=== PATIENT | male | born 1950 | race Hispanic/Latino ===

== ENCOUNTER 2016-04-18 11:56 | Outpatient (CLI) | payer MEDICARE ==
--- NOTE | 2016-04-18 22:07 | CT ---
CT ABDOMEN AND PELVIS WITHOUT CONTRAST 04/18/16 Comparison is made with the prior study of 09/11/15 done at [facility]. Axial slices were acquire d, then coronal reconstructions were done. The lung bases are clear. The liver, spleen, pancreas, adrenal glands, and kidneys showed no acute c hanges within the limitations of a noncontrast study. A small 1.5 cm peripheral density in the left kidney is most likely a small cyst. It has not changed since the prior study. There is no sign of re nal calculi or obstruction. There are calcifications in the renal arteries, as well as the aorta. Th ere was no evidence of aortic aneurysm. The bowel is nondistended with no sign of obstruction. The appendix appears normal. There are no inf lammatory changes around bowel or bowel wall thickening. A few small diverticula are seen in the lef t kidney without any findings of diverticulitis. CT of the pelvis shows no masses, inflammatory changes or free fluid. Some degenerative changes are noted in the lower lumbar spine and there has been a fusion of some of the lower lumbar vertebrae. IMPRESSION: No acute abdominal or pelvic findings to explain the patient's abdominal pain. POS: HOME
== END 2016-04-18 11:57 | disposition home or self-care (01) ==
LOC: BURCT 11:56
PROVIDERS: ATTEND Family Medicine
DX: R10.9 Unspecified abdominal pain (principal)
CPT/HCPCS: 74176

== ENCOUNTER 2016-10-09 16:59 | Outpatient (CLI) | payer MEDICARE ==
--- NOTE | 2016-10-09 20:53 | RAD ---
LEFT SHOULDER THREE VIEWS 10/09/16 There is marked irregularity of the greater tubercle of the humerus. The appearance suggests there p robably was old trauma here. MRI would be much better at showing acute versus chronic and if there i s any associated rotator cuff damage. There is no dislocation. The AC joint is normal in width. A sm all calcified lymph node is suggested in the axillary region. IMPRESSION: Probable prior trauma to the greater tubercle. POS: HOME
== END 2016-10-09 17:00 | disposition home or self-care (01) ==
LOC: BURRAD 16:59
PROVIDERS: ATTEND Family Medicine
DX: S40.012A Contusion of left shoulder, initial encounter (principal)

== ENCOUNTER 2016-11-15 16:22 | Outpatient (CLI) | payer MEDICARE ==
[2016-11-15 16:45] LABS: #Basophils 0.1 thou/uL (0.0-0.2); #Eosinphils 0.1 thou/uL (0.0-0.7); #Monocytes 0.7 thou/uL (0.11-0.59); #Neutrophils 6.3 thou/uL (1.40-6.50); %Basophils 0.6 % (0.0-1.0); %Eosinophils 1.5 % (0.0-10.0); %Lymphocytes 21.7 % (21.0-51.0); %Monocytes 7.9 % (0.0-10.0); %Neutrophils 68.3 % (42.0-75.0); Hemoglobin 18.4 g/dL (14.0-18.0); Mean Corpuscular HGB CONC 34.3 g/dL (32.0-36.0); Mean Corpuscular Hemoglobin 31.4 pg (27.0-31.0); Mean Corpuscular Volume 91.5 fl (80.0-94.0); Mean Platelet Volume 5.9 fL (7.4-10.4); Platelet Count 161 thou/uL (130-400); Red Blood Cell (RBC) Count 5.86 mill/uL (4.70-6.10); White Blood Cell (WBC) Count 9.2 thou/uL (4.8-10.8)
[2016-11-15 16:56] LABS: Hemoglobin A1c 6.1 % (4.0-6.0)
[2016-11-15 17:05] LABS: ALT (SGPT) 14 U/L (8-55); AST (SGOT) 12 U/L (5-34); Albumin 4.2 g/dL (3.4-4.8); Alkaline Phosphatase 187 U/L (40-150); Anion Gap 15 mmol/L (10-20); BUN (Urea Nitrogen) 13 mg/dL (8.4-25.7); Bilirubin, Total 0.5 mg/dL (0.2-1.2); Calc. Creatinine Clearance 0 mL/min (70-130); Calcium 10.4 mg/dL (7.8-10.44); Carbon Dioxide 28 mmol/L (23-31); Chloride 102 mmol/L (98-107); Estimated GFR-MDRD 67; Glucose 230 mg/dL (80-115); Potassium 4.2 mmol/L (3.5-5.1); Protein, Total 7.2 g/dL (5.8-8.1); Sodium 141 mmol/L (136-145)
[2016-11-16 17:38] LABS: Creatinine, Urine 91.1 mg/dL (63-166); Microalbumin Urine 2.5 mg/dL (0.5-50.0); Microalbumin/Creat Ratio 27.4 mg/g (Less than 30)
== END 2016-11-15 16:23 | disposition home or self-care (01) ==
LOC: HPCALD 16:22
PROVIDERS: ATTEND Family Medicine
DX: E11.9 Type 2 diabetes mellitus without complications (principal)
CPT/HCPCS: 36415; 80053; 82043; 83036; 85025

== ENCOUNTER 2016-11-22 11:54 | Outpatient (CLI) | payer MEDICARE ==
[2016-11-22 14:10] LABS: #Basophils 0.1 thou/uL (0.0-0.2); #Eosinphils 0.1 thou/uL (0.0-0.7); #Lymphocytes 1.6 thou/uL (1.20-3.40); #Monocytes 0.7 thou/uL (0.11-0.59); #Neutrophils 5.6 thou/uL (1.40-6.50); %Basophils 0.8 % (0.0-1.0); %Eosinophils 1.7 % (0.0-10.0); %Lymphocytes 19.2 % (21.0-51.0); %Monocytes 8.8 % (0.0-10.0); %Neutrophils 69.5 % (42.0-75.0); Hemoglobin 17.5 g/dL (14.0-18.0); Mean Corpuscular HGB CONC 34.6 g/dL (32.0-36.0); Mean Corpuscular Volume 89.5 fl (80.0-94.0); Mean Platelet Volume 6.4 fL (7.4-10.4); PLT Morphology Comment Appears Decreased; Platelet Count 115 thou/uL (130-400); RBC Distribution Width 13.3 % (11.5-14.5); Red Blood Cell (RBC) Count 5.65 mill/uL (4.70-6.10); White Blood Cell (WBC) Count 8.1 thou/uL (4.8-10.8)
== END 2016-11-22 11:55 | disposition home or self-care (01) ==
LOC: HPCALD 11:54
PROVIDERS: ATTEND Family Medicine
DX: D75.1 Secondary polycythemia (principal)
CPT/HCPCS: 36415; 82668; 85025

== ENCOUNTER 2016-11-22 12:34 | Outpatient (CLI) | payer MEDICARE ==
--- NOTE | 2016-11-22 16:00 | CT ---
CT OF THE BRAIN WITHOUT CONTRAST: Date: 11/22/16 Comparison is made with the 11/05/[address] [facility]. The prior study showed a small focal area of acute parenchymal hemorrhage in the right frontal lobe. On today's study, not unexpectedly the blood has become now isodense with just a hint of any remaini ng. There has certainly been no rebleeding or areas of bleeding. Diffuse chronic ischemic changes ar e present throughout the brain consisting of patchy hypodense areas in the deep white matter. These seem quite similar to before. Atrophy and mild compensatory dilatation of the ventricles is the same as well. No mass or obvious acute stroke was seen. There are dense calcifications in the vertebral arteries, especially the left. The calvarium and visible sinuses were unremarkable. IMPRESSION: 1. Interval resorption and/or turning isodense of the small focal right frontal hemorrhage. No evid ence of new bleeding. 2. Diffuse chronic ischemic changes. POS: HOME
== END 2016-11-22 12:35 | disposition home or self-care (01) ==
LOC: BURCT 12:34
PROVIDERS: ATTEND Family Medicine
DX: I62.9 Nontraumatic intracranial hemorrhage, unspecified (principal)
CPT/HCPCS: 70450

== ENCOUNTER 2017-12-04 13:15 | Inpatient (IN) | payer MEDICARE ==
[2017-12-04] MEDS ORDERED: Dextrose 5% in Water 1,000 ML IV PRN (17:22)
[2017-12-04] MEDS ORDERED: Dextrose 50% Abboject 50 ML SYRINGE SLOW IVP PRN (17:22)
[2017-12-04] MEDS ORDERED: HumaLOG 300 UNITS/3 ML VIAL SC PRN ×2 (17:22)
[2017-12-04] MEDS ORDERED: traMADol HCl 50 MG TAB PO PRN (17:25)
[2017-12-04] MEDS ORDERED: Loperamide HCl 2 MG CAP PO PRN (17:25)
[2017-12-04] MEDS: Nicotine 14 MG PATCH TD SCH (18:24)
[2017-12-04] MEDS ORDERED: Insulin Glargine 100 UNIT/ML 3 ML PEN SQ SCH (21:00)
[2017-12-04] MEDS: Atorvastatin Calcium 40 MG TAB PO SCH (21:03)
[2017-12-04] MEDS: Carvedilol 3.125 MG TAB PO SCH (21:04)
[2017-12-04] MEDS: Famotidine 20 MG TAB PO SCH (21:04)
[2017-12-04] MEDS: Zolpidem Tartrate 5 MG TAB PO PRN (21:05)
[2017-12-04] MEDS: Levemir Flexpen 100 UNITS/ML PEN SC SCH (21:19)
[2017-12-05 06:36] VITALS: BMI 22.0
[2017-12-05] MEDS: Lisinopril 5 MG TAB PO SCH (09:28)
[2017-12-05] MEDS: Aspirin 81 mg Enteric Coated Tablet PO SCH (09:28)
[2017-12-05] MEDS: Famotidine 20 MG TAB PO SCH ×2 (09:28→20:40)
[2017-12-05] MEDS: Carvedilol 3.125 MG TAB PO SCH ×2 (09:28→20:40)
[2017-12-05] MEDS: Clopidogrel Bisulfate 75 MG TAB PO SCH (09:29)
[2017-12-05] MEDS: Levemir Flexpen 100 UNITS/ML PEN SC SCH ×2 (09:31→20:40)
[2017-12-05] MEDS: Milk Of Magnesia 30 ML UDCUP PO PRN (14:28)
[2017-12-05] MEDS: Ondansetron ODT 4 MG TAB PO PRN (16:07)
[2017-12-05] MEDS: Nicotine 14 MG PATCH TD SCH (17:31)
[2017-12-05] MEDS: Atorvastatin Calcium 40 MG TAB PO SCH (20:39)
[2017-12-06] MEDS: Clopidogrel Bisulfate 75 MG TAB PO SCH (09:32)
[2017-12-06] MEDS: Lisinopril 5 MG TAB PO SCH (09:32)
[2017-12-06] MEDS: Famotidine 20 MG TAB PO SCH ×2 (09:32→21:09)
[2017-12-06] MEDS: Carvedilol 3.125 MG TAB PO SCH ×2 (09:32→21:09)
[2017-12-06] MEDS: Aspirin 81 mg Enteric Coated Tablet PO SCH (09:33)
[2017-12-06] MEDS: Levemir Flexpen 100 UNITS/ML PEN SC SCH ×2 (09:33→21:09)
[2017-12-06] MEDS: Ondansetron ODT 4 MG TAB PO PRN (12:32)
[2017-12-06] MEDS: Acetaminophen 325 MG TAB PO PRN (13:56)
[2017-12-06] MEDS: Milk Of Magnesia 30 ML UDCUP PO PRN (14:26)
[2017-12-06] MEDS: Nicotine 14 MG PATCH TD SCH (18:04)
[2017-12-06] MEDS: Atorvastatin Calcium 40 MG TAB PO SCH (21:09)
[2017-12-06] MEDS: Zolpidem Tartrate 5 MG TAB PO PRN (21:14)
[2017-12-07] MEDS: Levemir Flexpen 100 UNITS/ML PEN SC SCH ×2 (09:28→21:05)
[2017-12-07] MEDS: Aspirin 81 mg Enteric Coated Tablet PO SCH (09:34)
[2017-12-07] MEDS: Carvedilol 3.125 MG TAB PO SCH ×2 (09:34→21:04)
[2017-12-07] MEDS: Famotidine 20 MG TAB PO SCH ×2 (09:34→21:04)
[2017-12-07] MEDS: Clopidogrel Bisulfate 75 MG TAB PO SCH (09:34)
[2017-12-07] MEDS: Lisinopril 5 MG TAB PO SCH (09:34)
[2017-12-07] MEDS: Bisacodyl 10 MG SUPP PR PRN (09:45)
[2017-12-07] MEDS: Nicotine 14 MG PATCH TD SCH (18:18)
[2017-12-07] MEDS: Atorvastatin Calcium 40 MG TAB PO SCH (21:04)
[2017-12-07] MEDS: Zolpidem Tartrate 5 MG TAB PO PRN (21:35)
[2017-12-08] MEDS: Polyethylene Glycol 3350 17 GM Packet PO SCH (09:13)
[2017-12-08] MEDS: Famotidine 20 MG TAB PO SCH ×2 (09:13→21:33)
[2017-12-08] MEDS: Carvedilol 3.125 MG TAB PO SCH ×2 (09:13→21:33)
[2017-12-08] MEDS: Aspirin 81 mg Enteric Coated Tablet PO SCH (09:14)
[2017-12-08] MEDS: Lisinopril 5 MG TAB PO SCH (09:14)
[2017-12-08] MEDS: Clopidogrel Bisulfate 75 MG TAB PO SCH (09:14)
[2017-12-08] MEDS: Levemir Flexpen 100 UNITS/ML PEN SC SCH ×2 (09:35→21:33)
[2017-12-08] MEDS: Acetaminophen 325 MG TAB PO PRN (12:02)
[2017-12-08] MEDS: Nicotine 14 MG PATCH TD SCH (18:58)
[2017-12-08] MEDS: Atorvastatin Calcium 40 MG TAB PO SCH (21:33)
[2017-12-08] MEDS: Zolpidem Tartrate 5 MG TAB PO PRN (21:34)
[2017-12-09] MEDS: Acetaminophen 325 MG TAB PO PRN ×2 (05:33→19:31)
[2017-12-09] MEDS: Polyethylene Glycol 3350 17 GM Packet PO SCH (09:07)
[2017-12-09] MEDS: Lisinopril 5 MG TAB PO SCH (09:09)
[2017-12-09] MEDS: Clopidogrel Bisulfate 75 MG TAB PO SCH (09:10)
[2017-12-09] MEDS: Carvedilol 3.125 MG TAB PO SCH ×2 (09:10→22:04)
[2017-12-09] MEDS: Aspirin 81 mg Enteric Coated Tablet PO SCH (09:10)
[2017-12-09] MEDS: Famotidine 20 MG TAB PO SCH ×2 (09:10→22:04)
[2017-12-09] MEDS: Levemir Flexpen 100 UNITS/ML PEN SC SCH ×2 (09:10→22:04)
[2017-12-09] MEDS: Nicotine 14 MG PATCH TD SCH (19:18)
[2017-12-09] MEDS: Atorvastatin Calcium 40 MG TAB PO SCH (22:03)
[2017-12-09] MEDS: Zolpidem Tartrate 5 MG TAB PO PRN (22:04)
[2017-12-10] MEDS: Clopidogrel Bisulfate 75 MG TAB PO SCH (08:49)
[2017-12-10] MEDS: Aspirin 81 mg Enteric Coated Tablet PO SCH (08:49)
[2017-12-10] MEDS: Famotidine 20 MG TAB PO SCH ×2 (08:49→21:37)
[2017-12-10] MEDS: Lisinopril 5 MG TAB PO SCH (08:49)
[2017-12-10] MEDS: Carvedilol 3.125 MG TAB PO SCH ×2 (08:50→21:37)
[2017-12-10] MEDS: Polyethylene Glycol 3350 17 GM Packet PO SCH (08:51)
[2017-12-10] MEDS: Levemir Flexpen 100 UNITS/ML PEN SC SCH ×2 (08:52→21:38)
[2017-12-10] MEDS: Milk Of Magnesia 30 ML UDCUP PO PRN (10:58)
[2017-12-10] MEDS: Acetaminophen 325 MG TAB PO PRN ×2 (14:10→21:37)
[2017-12-10] MEDS: Nicotine 14 MG PATCH TD SCH (17:49)
[2017-12-10] MEDS: Zolpidem Tartrate 5 MG TAB PO PRN (21:37)
[2017-12-10] MEDS: Atorvastatin Calcium 40 MG TAB PO SCH (21:37)
[2017-12-11] MEDS: Bisacodyl 10 MG SUPP PR PRN (05:40)
[2017-12-11] MEDS: Levemir Flexpen 100 UNITS/ML PEN SC SCH (08:17)
[2017-12-11] MEDS: Famotidine 20 MG TAB PO SCH (08:22)
[2017-12-11] MEDS: Aspirin 81 mg Enteric Coated Tablet PO SCH (08:22)
[2017-12-11] MEDS: Clopidogrel Bisulfate 75 MG TAB PO SCH (08:23)
[2017-12-11] MEDS: Lisinopril 5 MG TAB PO SCH (08:23)
[2017-12-11] MEDS: Carvedilol 3.125 MG TAB PO SCH (08:23)
[2017-12-11] MEDS: Polyethylene Glycol 3350 17 GM Packet PO SCH (08:24)
[2017-12-11] MEDS ORDERED: Nicotine 14 MG PATCH TD SCH (16:40)
[2017-12-11 17:21] VITALS: BP 127/59; TEMP 98.6
== END 2017-12-11 18:32 | DRG 57 ==
LOC: BURMED 13:15
PROVIDERS: ADMIT Family Medicine; ATTEND Family Medicine
DX: I69.398 Other sequelae of cerebral infarction (principal); E87.1 Hypo-osmolality and hyponatremia; I69.331 Monoplegia of upper limb following cerebral infarction affecting right dominant side; H54.3 Unqualified visual loss, both eyes; Z89.511 Acquired absence of right leg below knee; I10 Essential (primary) hypertension; E11.51 Type 2 diabetes mellitus with diabetic peripheral angiopathy without gangrene; F17.210 Nicotine dependence, cigarettes, uncomplicated; E78.5 Hyperlipidemia, unspecified
CPT/HCPCS: 36416; G8978-GP-CK; G8979-GP-CI; G8987-GO-CJ; G8988-GO-CI; J1815; Q0162

== ENCOUNTER 2018-11-06 15:43 | Emergency (ER) | payer MEDICARE, MEDICAID ==
--- NOTE | 2018-11-06 16:36 | RAD ---
Right shoulder 3 views HISTORY: Right shoulder injury. FINDINGS: Acromioclavicular and glenohumeral alignment are maintained. Moderate osteophytosis. No acu te fracture or dislocation. IMPRESSION: No acute osseous abnormalities are demonstrated.
--- NOTE | 2018-11-06 16:54 | CT ---
CT head noncontrast HISTORY: Fall. Head injury. COMPARISON: 05/21/2018. FINDINGS: There is no evidence of acute intracranial hemorrhage or infarct. Encephalomalacia within t he right frontal and occipital lobes has progressed slightly since the prior study. Diffuse cortical atrophy and chronic ischemic small vessel disease. There is no mass effect or shift of midli ne structures. Prominent calcification in the arterial structures. Visualized paranasal sinuses remain well aerated. IMPRESSION: Prominent chronic vascular disease. No acute intracranial abnormalities are demonstrated. Atherosclerosis.
== END 2018-11-06 18:50 ==
LOC: BURERS 15:43
DX: S09.90XA Unspecified injury of head, initial encounter (principal); S51.011A Laceration without foreign body of right elbow, initial encounter; S40.011A Contusion of right shoulder, initial encounter; E78.5 Hyperlipidemia, unspecified; Z86.73 Personal history of transient ischemic attack (TIA), and cerebral infarction without residual deficits; E11.51 Type 2 diabetes mellitus with diabetic peripheral angiopathy without gangrene; F32.9 Major depressive disorder, single episode, unspecified; F17.210 Nicotine dependence, cigarettes, uncomplicated; Z79.4 Long term (current) use of insulin; Z79.899 Other long term (current) drug therapy; V00.811A Fall from moving wheelchair (powered), initial encounter
CPT/HCPCS: 70450

== ENCOUNTER 2019-02-12 16:15 | Outpatient (CLI) | payer MEDICARE, MEDICAID ==
--- NOTE | 2019-02-12 17:42 | RAD ---
LUMBAR SPINE THREE VIEWS: 02/12/19 Comparison is made with a 04/14/13 study. There has been minimal interval change. Posterior fusion of L4 through S1 is present with pedicle scr ews. The right pedicle screw at the L4 level has a small break in it, but this was present in 2013 an d it has really not changed in any way in the interval. Mild spondylolisthesis of L4 on L5 is exactly the same as before. No acute fracture was seen. The L5-S1 disc space is mainly fused. The other disc spaces appear normal. No acute changes are seen in the SI joints. There is considerable fecal materi al in the colon. Some faint calcifications are seen in the left upper quadrant of uncertain etiology. There is dense calcification of the lower abdominal aorta. IMPRESSION: Some degenerative changes and postoperative changes. The exam is little different than the 2013 study . POS: HOME
== END 2019-02-12 16:16 | disposition home or self-care (01) ==
LOC: BURRAD 16:15
PROVIDERS: ATTEND Family Medicine
DX: Z91.81 History of falling (principal); M47.816 Spondylosis without myelopathy or radiculopathy, lumbar region; Z98.1 Arthrodesis status
CPT/HCPCS: 72100

== ENCOUNTER 2019-06-06 11:05 | Outpatient (CLI) | payer MEDICARE, OTHER ==
--- NOTE | 2019-06-06 15:50 | RAD ---
LUMBAR SPINE 3 VIEWS: Date: 06/06/2019 Comparison made with the prior study of 02/12/2019. No acute fracture seen. There is posterior fusion of L4 through S1 with three pedicle screws on the r ight and two on the left. There does appear to be a breakage of one of the L4 screws, but this is not a new finding. Slight disc space narrowing at L4-L5 is no different than before, and there is mild a nterolisthesis of L4 on L5. The L5-S1 disc space is fusing. Dense arteriosclerotic change is seen in the lower aorta. The SI joints are symmetrical. IMPRESSION: Chronic and postop changes, but no acute findings compared to the 2019 study. POS: HOME
== END 2019-06-06 11:06 | disposition home or self-care (01) ==
LOC: BURRAD 11:05
PROVIDERS: ATTEND Registered Nurse Community Health
DX: M54.40 Lumbago with sciatica, unspecified side (principal); Z98.1 Arthrodesis status
CPT/HCPCS: 72100

== ENCOUNTER 2019-06-19 16:31 | Emergency (ER) | payer MEDICARE, OTHER ==
--- NOTE | 2019-06-19 20:13 | CT ---
CT OF THE BRAIN WIHTOUT CONTRAST: 06/19/[address] was done and compared with the prior study dated 11/06/18. Diffuse chronic ischemic changes are present throughout the white matter bilaterally. Areas of enceph alomalacia are prominent in the right frontal and occipital regions in particular. The overall appear ance is not much different than the prior exam. No intracranial hemorrhage or extra-axial hematoma wa s seen. There was no sign of acute stroke, though small strokes would be missed against the backgroun d of chronic ischemic change. The mastoid air cells on the left are under aerated. IMPRESSION: 1. No acute traumatic intracranial findings. 2. Extensive chronic ischemic changes, but little different than in 2019. Findings called to [place] in ER at 1704 on 06/19/19. POS: HOME
--- NOTE | 2019-06-19 20:14 | RAD ---
LEFT LEG TWO VIEWS: 06/19/19 Vascular clips are seen in the leg. No acute fracture was evident. The tibia and fibula appear intact . A stent is noted in the popliteal region. IMPRESSION: No acute bony findings. POS: HOME
== END 2019-06-19 17:42 | disposition home or self-care (01) ==
LOC: BURERS 16:31
DX: S00.03XA Contusion of scalp, initial encounter (principal); S80.12XA Contusion of left lower leg, initial encounter; E78.5 Hyperlipidemia, unspecified; E11.9 Type 2 diabetes mellitus without complications; F32.9 Major depressive disorder, single episode, unspecified; I95.9 Hypotension, unspecified; F17.210 Nicotine dependence, cigarettes, uncomplicated; I73.9 Peripheral vascular disease, unspecified; Z86.73 Personal history of transient ischemic attack (TIA), and cerebral infarction without residual deficits; Z79.82 Long term (current) use of aspirin; Z79.899 Other long term (current) drug therapy; Z79.4 Long term (current) use of insulin; W18.12XA Fall from or off toilet with subsequent striking against object, initial encounter
CPT/HCPCS: 70450

== ENCOUNTER 2019-12-15 22:19 | Outpatient (CLI) | payer MEDICARE, OTHER ==
[2019-12-15 22:37] LABS: Bilirubin Negative (Negative); Blood, Urine Negative (Negative); Clarity Slightly Cloudy (Clear); Glucose, Urine (Dipstick) Negative (Negative); Ketone, Urine 15 mg/dL (Negative); Leukocyte Negative (Negative); Nitrite Negative (Negative); Protein, Urine (Dipstick) Negative (Neg-Trace); Urobilinogen 0.2 mg/dL (Less than 2)
[2019-12-15 22:49] LABS: Bacteria/HPF Rare-Few HPF (None Seen); Calcium Oxalate Crystals 1+ HPF (None Seen); RBC/HPF None Seen HPF (0-3); Squamous Epithelial None Seen HPF (0-3); Urine Culture Reflex No No; WBC/HPF 0-3 HPF (0-3)
== END 2019-12-15 22:20 | disposition home or self-care (01) ==
LOC: BURMANOR 22:19
PROVIDERS: ATTEND Registered Nurse Community Health
DX: N39.0 Urinary tract infection, site not specified (principal); R41.82 Altered mental status, unspecified
CPT/HCPCS: 81001; 87086

== ENCOUNTER 2020-02-11 20:23 | Outpatient (CLI) | payer MEDICARE, OTHER ==
[2020-02-11 20:40] LABS: Bilirubin Small (Negative); Blood, Urine Negative (Negative); Clarity Clear (Clear); Glucose, Urine (Dipstick) Negative (Negative); Ketone, Urine Trace mg/dL (Negative); Leukocyte Negative (Negative); Nitrite Negative (Negative); Protein, Urine (Dipstick) Negative (Neg-Trace); Specific Gravity, Urine 1.025 (1.005-1.030); Urobilinogen 0.2 mg/dL (Less than 2); pH, Urine 5.5 (5.0-9.0)
[2020-02-11 20:41] LABS: Urine Culture Reflex No No
[2020-02-11 20:43] LABS: Bacteria/HPF 1+ HPF (None Seen); RBC/HPF None Seen HPF (0-3); Squamous Epithelial 0-3 HPF (0-3); WBC/HPF 0-3 HPF (0-3)
[2020-02-11 20:55] LABS: ALT (SGPT) 22 U/L (8-55); AST (SGOT) 25 U/L (5-34); Alkaline Phosphatase 116 U/L (40-110); Anion Gap 21 mmol/L (10-20); BUN (Urea Nitrogen) 12 mg/dL (8.4-25.7); Bilirubin, Total 0.4 mg/dL (0.2-1.2); Calc. Creatinine Clearance 0 mL/min (70-130); Calcium 9.3 mg/dL (7.8-10.44); Carbon Dioxide 22 mmol/L (23-31); Chloride 97 mmol/L (98-107); Estimated GFR-MDRD 67; Globulin 3.2 g/dL (2.4-3.5); Glucose 113 mg/dL (83-110); Protein, Total 7.2 g/dL (5.8-8.1); Sodium 135 mmol/L (136-145)
[2020-02-12 10:01] LABS: #Eosinphils 0.1 thou/uL (0.0-0.7); #Lymphocytes 1.5 thou/uL (1.20-3.40); #Monocytes 0.4 thou/uL (0.11-0.59); #Neutrophils 4.2 thou/uL (1.40-6.50); %Basophils 0.6 % (0.0-1.0); %Eosinophils 2.1 % (0.0-10.0); %Lymphocytes 23.6 % (21.0-51.0); %Monocytes 7.1 % (0.0-10.0); %Neutrophils 66.7 % (42.0-75.0); Hemoglobin 16.5 g/dL (14.0-18.0); Mean Corpuscular HGB CONC 32.6 g/dL (32.0-36.0); Mean Corpuscular Hemoglobin 29.7 pg (27.0-31.0); Mean Corpuscular Volume 91.1 fL (78.0-98.0); Mean Platelet Volume 7.8 fL (7.4-10.4); Platelet Count 108 thou/uL (130-400); Platelet Morphology Comment Appears Decreased; RBC Distribution Width 13.8 % (11.5-14.5); Red Blood Cell (RBC) Count 5.57 mill/uL (4.70-6.10); White Blood Cell (WBC) Count 6.2 thou/uL (4.8-10.8)
[2020-02-12 10:08] LABS: Follow-up Hematology Comp? YES; Follow-up Result - Hematology REPORT FAXED
== END 2020-02-11 20:24 | disposition home or self-care (01) ==
LOC: BURMANOR 20:23
PROVIDERS: ATTEND Registered Nurse Community Health
DX: M62.50 Muscle wasting and atrophy, not elsewhere classified, unspecified site (principal); M62.81 Muscle weakness (generalized); E11.8 Type 2 diabetes mellitus with unspecified complications; R44.1 Visual hallucinations; N39.0 Urinary tract infection, site not specified
CPT/HCPCS: 80053; 81001; 85025; 87086

== ENCOUNTER 2020-07-09 00:11 | Outpatient (CLI) | payer MEDICARE, MEDICAID | END 2020-07-09 00:12 | disposition home or self-care (01) | LOC: BURMANOR 00:11 | PROVIDERS: ATTEND Family Medicine | DX: E78.5 Hyperlipidemia, unspecified (principal); N40.0 Benign prostatic hyperplasia without lower urinary tract symptoms; E11.8 Type 2 diabetes mellitus with unspecified complications; E11.51 Type 2 diabetes mellitus with diabetic peripheral angiopathy without gangrene; G40.89 Other seizures | CPT/HCPCS: 83880 ==

== ENCOUNTER 2020-11-13 10:07 | Outpatient (CLI) | payer MEDICARE, OTHER | END 2020-11-13 10:08 | disposition home or self-care (01) | LOC: BURRAD 10:07 | PROVIDERS: ATTEND Family Medicine | DX: M54.5 Low back pain (principal); Z98.1 Arthrodesis status | CPT/HCPCS: 72100 ==

== ENCOUNTER 2020-12-21 16:57 | Outpatient (CLI) | payer MEDICARE, MEDICAID | END 2020-12-21 16:58 | disposition home or self-care (01) | LOC: BURMANOR 16:57 | PROVIDERS: ATTEND Family Medicine | DX: Z11.59 Encounter for screening for other viral diseases (principal) | CPT/HCPCS: 87804 ==

== ENCOUNTER 2021-01-14 18:03 | Outpatient (CLI) | payer MEDICARE, MEDICAID | END 2021-01-14 18:04 | disposition home or self-care (01) | LOC: BURMANOR 18:03 | PROVIDERS: ATTEND Family Medicine | DX: J10.1 Influenza due to other identified influenza virus with other respiratory manifestations (principal) | CPT/HCPCS: 87804 ==

== ENCOUNTER 2021-02-24 13:45 | Outpatient (CLI) | payer MEDICARE, OTHER | END 2021-02-24 13:46 | disposition home or self-care (01) | LOC: BURRAD 13:45 | PROVIDERS: ATTEND Podiatrist | DX: M79.675 Pain in left toe(s) (principal); M20.12 Hallux valgus (acquired), left foot ==

== ENCOUNTER 2022-01-01 18:12 | Emergency (ER) | payer MEDICARE, OTHER ==
[2022-01-01 18:45] LABS: #Basophils 0.1 thou/uL (0.0-0.2); #Eosinphils 0.2 thou/uL (0.0-0.7); #Lymphocytes 2.2 thou/uL (1.20-3.40); #Monocytes 0.7 thou/uL (0.11-0.59); #Neutrophils 4.2 thou/uL (1.40-6.50); %Eosinophils 2.7 % (0.0-10.0); %Lymphocytes 29.6 % (21.0-51.0); %Monocytes 9.3 % (0.0-10.0); %Neutrophils 57.4 % (42.0-75.0); Hemoglobin 15.1 g/dL (14.0-18.0); Mean Corpuscular HGB CONC 35.1 g/dL (32.0-36.0); Mean Corpuscular Volume 91.1 fL (78.0-98.0); Mean Platelet Volume 6.4 fL (7.4-10.4); Platelet Count 146 thou/uL (130-400); Red Blood Cell (RBC) Count 4.71 mill/uL (4.70-6.10); White Blood Cell (WBC) Count 7.3 thou/uL (4.8-10.8)
[2022-01-01 18:56] LABS: ALT (SGPT) 21 U/L (8-55); AST (SGOT) 16 U/L (5-34); Albumin 4.4 g/dL (3.4-4.8); Alkaline Phosphatase 99 U/L (40-110); Anion Gap 20 mmol/L (10-20); BUN (Urea Nitrogen) 31 mg/dL (8.4-25.7); Bilirubin, Total 0.6 mg/dL (0.2-1.2); CK (CPK) 211 U/L (30-200); Calc. Creatinine Clearance 0 mL/min (70-130); Calcium 9.7 mg/dL (7.8-10.44); Carbon Dioxide 24 mmol/L (23-31); Chloride 98 mmol/L (98-107); Estimated GFR 56; Globulin 3.1 g/dL (2.4-3.5); Glucose 120 mg/dL (83-110); Lipase 50 U/L (8-78); Potassium 4.5 mmol/L (3.5-5.1); Protein, Total 7.5 g/dL (5.8-8.1); Sodium 137 mmol/L (136-145)
[2022-01-01] MEDS ORDERED: Aspirin Chewable 81 MG TAB ONE (19:29)
[2022-01-01 19:59] LABS: Bilirubin Negative (Negative); Blood, Urine Negative (Negative); Clarity Clear (Clear); Glucose, Urine (Dipstick) Negative (Negative); Ketone, Urine Negative (Negative); Leukocyte Negative (Negative); Nitrite Negative (Negative); Protein, Urine (Dipstick) Negative (Neg-Trace)
[2022-01-01 20:29] LABS: Acetaminophen Less than 10.0 mcg/mL (10.0-30.0); Alcohol Less than 10 mg/dL (Less than 10); Salicylate Less than 8.0 mg/dL (15.0-30.0)
== END 2022-01-01 22:23 | disposition short-term general hospital (02) ==
LOC: BURERS 18:12
DX: R47.81 Slurred speech (principal); E78.5 Hyperlipidemia, unspecified; I10 Essential (primary) hypertension; Z86.73 Personal history of transient ischemic attack (TIA), and cerebral infarction without residual deficits; F17.210 Nicotine dependence, cigarettes, uncomplicated; Z79.4 Long term (current) use of insulin; Z79.84 Long term (current) use of oral hypoglycemic drugs; Z79.899 Other long term (current) drug therapy
CPT/HCPCS: 36415; 51701; 70450; 71045; 80053; 80307; 81003; 82550; 83690; 84443; 84484; 85025; 93005; 96360

== ENCOUNTER 2023-10-25 14:10 | Emergency (ER) | payer OTHER ==
[2023-10-25 14:59] LABS: #Basophils 0.1 thou/uL (0.0-0.2); #Eosinphils 0.2 thou/uL (0.0-0.7); #Monocytes 0.6 thou/uL (0.11-0.59); #Neutrophils 4.4 thou/uL (1.40-6.50); %Basophils 0.7 % (0.0-1.0); %Eosinophils 3.2 % (0.0-10.0); %Lymphocytes 28.1 % (21.0-51.0); %Monocytes 8.1 % (0.0-10.0); %Neutrophils 59.9 % (42.0-75.0); Hematocrit 44.7 % (42.0-52.0); Hemoglobin 14.9 g/dL (14.0-18.0); Mean Corpuscular HGB CONC 33.4 g/dL (32.0-36.0); Mean Corpuscular Hemoglobin 30.6 pg (27.0-31.0); Mean Corpuscular Volume 91.6 fl (78.0-98.0); Mean Platelet Volume 6.2 fL (7.4-10.4); Platelet Count 142 10x3/uL (130-400); RBC Distribution Width 13.3 % (11.5-14.5); Red Blood Cell (RBC) Count 4.88 mill/uL (4.70-6.10); White Blood Cell (WBC) Count 7.3 10x3/uL (4.8-10.8)
[2023-10-25 15:09] LABS: INR-International Normal Ratio 1.4; Prothrombin Time 16.8 sec (12.0-14.7)
[2023-10-25 15:17] LABS: ALT (SGPT) 16 U/L (8-55); AST (SGOT) 17 U/L (5-34); Albumin 3.7 g/dL (3.4-4.8); Alkaline Phosphatase 77 U/L (40-110); Anion Gap 19 mmol/L (10-20); BUN (Urea Nitrogen) 12 mg/dL (8.4-25.7); Bilirubin, Total 0.8 mg/dL (0.2-1.2); Calc. Creatinine Clearance 0 mL/min (70-130); Calcium 9.4 mg/dL (7.8-10.44); Carbon Dioxide 27 mmol/L (23-31); Chloride 100 mmol/L (98-107); Estimated GFR 85; Globulin 3.1 g/dL (2.4-3.5); Glucose 91 mg/dL (83-110); Potassium 3.8 mmol/L (3.5-5.1); Protein, Total 6.8 g/dL (5.8-8.1); Sodium 142 mmol/L (136-145)
[2023-10-25 15:34] LABS: Bilirubin Negative (Negative); Blood, Urine Negative (Negative); Clarity Clear (Clear); Glucose, Urine (Dipstick) Negative (Negative); Ketone, Urine Negative (Negative); Leukocyte Trace (Negative); Nitrite Negative (Negative); Protein, Urine (Dipstick) Negative (Neg-Trace); Specific Gravity, Urine 1.015 (1.005-1.030); pH, Urine 5.5 (5.0-9.0)
[2023-10-25 15:37] LABS: Bacteria/HPF 1+ HPF (None Seen); CAUTI Indications for Culture Alt mental st,lethar; RBC/HPF None Seen HPF (0-3); Squamous Epithelial 0-3 HPF (0-3); Urine Culture Reflex No No; WBC/HPF 0-3 HPF (0-3)
[2023-10-25] MEDS ORDERED: Boostrix 0.5 ML (Tdap) VIAL (>/=7 yrs of age) ONE (16:16)
== END 2023-10-25 17:18 ==
LOC: BURERS 14:10
DX: S90.02XA Contusion of left ankle, initial encounter (principal); S80.212A Abrasion, left knee, initial encounter; E11.9 Type 2 diabetes mellitus without complications; I10 Essential (primary) hypertension; K21.9 Gastro-esophageal reflux disease without esophagitis; Z79.4 Long term (current) use of insulin; Z79.82 Long term (current) use of aspirin; Z79.84 Long term (current) use of oral hypoglycemic drugs; Z79.899 Other long term (current) drug therapy; W01.0XXA Fall on same level from slipping, tripping and stumbling without subsequent striking against object, initial encounter; Z23 Encounter for immunization
CPT/HCPCS: 36415; 70450; 72125; 80053; 81001; 85025; 85610; 90471; 90715